=== PATIENT | female | born 1985 | race Hispanic/Latino ===

== ENCOUNTER 2017-07-10 08:16 | Emergency (ER) | payer OTHER ==
[~2017-07-10] VITALS: Ht 162.6 cm; Wt 104.0 kg
[~2017-07-10 08:16] MED LIST: AMOXICILLIN500 MG PO; AUGMENTIN500 MG OR; DENIES CURRENT MEDS; LORTAB 5/3255 MG PO; NO HOME MEDS; PHENERGAN25 MG/TAB PO; PRENA1/QUATREFOLIC; PRENATAL1 TA1; PRILOSEC20 MG/CAP PO; PROMETHAZINE25 MG OR
[2017-07-10] MEDS ORDERED: AMOXICILLIN500 M2 PO (09:15)
[2017-07-10 09:23] VITALS: BP 129/83
== END 2017-07-10 09:32 | disposition home or self-care (01) | DRG 153 ==
LOC: ED 08:16
DX: J02.9 Acute pharyngitis, unspecified (principal)

== ENCOUNTER 2019-05-17 08:23 | Emergency (ER) | payer SELFPAY ==
[~2019-05-17] VITALS: Ht 162.6 cm; Wt 95.2 kg
[~2019-05-17 08:23] MED LIST changes: +AMOXICILLIN500 M2 PO
[2019-05-17] MEDS ORDERED: AMOXICILLIN500 M2 PO (09:01)
[2019-05-17 09:15] VITALS: BP 119/83
== END 2019-05-17 09:15 | disposition home or self-care (01) | DRG 153 ==
LOC: ED 08:23
DX: J02.9 Acute pharyngitis, unspecified (principal)

== ENCOUNTER 2020-01-20 04:02 | Emergency (ER) | payer MEDICAID ==
[~2020-01-20] VITALS: Ht 162.6 cm; Wt 93.0 kg
[2020-01-20 05:18] LABS: URINE BILIRUBIN - DIPSTICK NEGATIVE (NEGATIVE); URINE BLOOD DIPSTICK NEGATIVE (NEGATIVE); URINE COLOR YELLOW; URINE GLUCOSE - DIPSTICK NEGATIVE (NEGATIVE); URINE KETONE NEGATIVE (NEGATIVE); URINE LEUK ESTERASE NEGATIVE (NEGATIVE); URINE NITRITE - DIPSTICK NEGATIVE (Negative); URINE PH 5.5 (4.5-8.0); URINE PROTEIN - DIPSTICK TRACE mg/dL (NEG-TRACE); URINE SPECIFIC GRAVITY >=1.030; URINE UROBILINOGEN - DIPSTICK 0.2 E.U./dL (0.2)
[2020-01-20 05:23] LABS: HEMATOCRIT 33.1 % (37.0-47.0); IMMATURE GRANULOCYTES 0.1 % (0.0-5.0); MEAN CORPUSCULAR HGB 18.8 pG CALC (26.0-32.0); MEAN CORPUSCULAR HGB CONC 26.6 g/dL CAL (32.0-36.0); NEUT# 3.37 thou/uL (2.00-7.15); RED BLOOD COUNT 4.68 mill/uL (4.20-5.60); RED CELL DISTRI WIDTH 19.5 % (11.5-15.5)
[2020-01-20 05:26] LABS: HEMOGLOBIN 8.8 g/dl (12.0-16.0); MEAN CELL VOLUME 70.7 fL CALC (80.0-100.0)
[2020-01-20 05:40] LABS: ALBUMIN 4.4 g/dL (3.2-5.0); ALKALINE PHOSPHATASE 58 u/l (38-126); BUN 16 mg/dL (7-17); BUN/CREATININE RATIO 25 (12-20 (CALC)); CARBON DIOXIDE 23 mmol/l (22-30); CHLORIDE 107 mmol/l (95-108); CREATININE 0.7 mg/dL (0.5-1.0); GFR > 60 ML/MIN (>=60 (CALC)); GFR FOR AFR.AMER. > 60 ML/MIN (>=60 (CALC)); LIPASE 132 u/l (23-300); POTASSIUM 3.8 mmol/l (3.5-5.1); SGOT/AST 17 u/l (14-36); TOTAL PROTEIN 7.2 g/dL (6.3-8.2)
[2020-01-20 05:47] LABS: ANION GAP 11 (6-22 (CALC)); BILIRUBIN, TOTAL 0.2 mg/dL (0.0-1.4); SODIUM 137 mmol/l (137-146)
[2020-01-20 06:25] VITALS: BP 134/72
[2020-01-20] MEDS ORDERED: ZOFRAN4 MG/TAB PO (06:36)
[2020-01-20] MEDS ORDERED: ULTRAM50 MG PO (06:36)
[2020-01-20] MEDS ORDERED: PROTONIX40 M2 PO (06:36)
== END 2020-01-20 06:48 | disposition home or self-care (01) | DRG 392 ==
LOC: ED 04:02
DX: K29.70 Gastritis, unspecified, without bleeding (principal); D64.9 Anemia, unspecified
CPT/HCPCS: S0164

== ENCOUNTER 2020-06-08 11:13 | Emergency (ER) | payer MEDICAID ==
[~2020-06-08] VITALS: Ht 162.6 cm; Wt 104.4 kg
[~2020-06-08 11:13] MED LIST changes: +AMOX/K CLAV875 M1 PO; +PROBIOTIC1 TAB PO; +PROTONIX40 M2 PO; +ULTRAM50 MG PO; +ZOFRAN4 MG/TAB PO
[2020-06-08] MEDS ORDERED: XANAX0.5 MG PO (11:26)
[2020-06-08 13:04] LABS: URINE BILIRUBIN - DIPSTICK NEGATIVE (NEGATIVE); URINE BLOOD DIPSTICK NEGATIVE (NEGATIVE); URINE COLOR YELLOW; URINE GLUCOSE - DIPSTICK NEGATIVE (NEGATIVE); URINE KETONE NEGATIVE (NEGATIVE); URINE LEUK ESTERASE NEGATIVE (NEGATIVE); URINE NITRITE - DIPSTICK NEGATIVE (Negative); URINE PH 7.5 (4.5-8.0); URINE PROTEIN - DIPSTICK TRACE mg/dL (NEG-TRACE); URINE UROBILINOGEN - DIPSTICK 0.2 E.U./dL (0.2)
[2020-06-08] MEDS ORDERED: MEDDOSEPAK PO (13:18)
[2020-06-08] MEDS ORDERED: IBUPROFEN600 MG PO (13:18)
[2020-06-08 13:34] VITALS: BP 140/79
== END 2020-06-08 13:47 | disposition home or self-care (01) ==
LOC: ED 11:13
PROVIDERS: Student in an Organized Health Care Education/Training Program
DX: M51.26 Other intervertebral disc displacement, lumbar region (principal); Z20.822 Contact with and (suspected) exposure to COVID-19

== ENCOUNTER 2021-01-28 10:55 | Emergency (ER) | payer MEDICAID ==
[~2021-01-28] VITALS: Ht 162.6 cm; Wt 100.0 kg
[~2021-01-28 10:55] MED LIST changes: +IBUPROFEN600 MG PO; +MEDDOSEPAK PO; +XANAX0.5 MG PO
[2021-01-28 12:58] LABS: HEMATOCRIT 35.7 % (37.0-47.0); HEMOGLOBIN 10.4 g/dl (12.0-16.0); MEAN CELL VOLUME 70.8 fL CALC (80.0-100.0); MEAN CORPUSCULAR HGB 20.6 pG CALC (26.0-32.0); MEAN CORPUSCULAR HGB CONC 29.1 g/dL CAL (32.0-36.0); NEUT# 3.08 thou/uL (2.00-7.15); RED BLOOD COUNT 5.04 mill/uL (4.20-5.60); RED CELL DISTRI WIDTH 18.1 % (11.5-15.5)
[2021-01-28 13:43] LABS: ALBUMIN 4.5 g/dL (3.2-5.0); ALKALINE PHOSPHATASE 60 u/l (38-126); ANION GAP 13 (6-22 (CALC)); BILIRUBIN, TOTAL 0.3 mg/dL (0.0-1.4); BUN 11 mg/dL (7-17); BUN/CREATININE RATIO 17 (12-20 (CALC)); CARBON DIOXIDE 26 mmol/l (22-30); CHLORIDE 102 mmol/l (95-108); CREATININE 0.6 mg/dL (0.5-1.0); GFR > 60 ML/MIN (>=60 (CALC)); GFR FOR AFR.AMER. > 60 ML/MIN (>=60 (CALC)); POTASSIUM 3.8 mmol/l (3.5-5.1); SGOT/AST 42 u/l (14-36); SODIUM 137 mmol/l (137-146)
[2021-01-28] MEDS ORDERED: ALLEGRA ALLERGY60 MG PO (15:43)
[2021-01-28] MEDS ORDERED: ZOFRAN4 MG/TAB PO (15:43)
[2021-01-28] MEDS ORDERED: SINGULAIR10 MG PO (15:43)
[2021-01-28 16:13] VITALS: BP 131/59
== END 2021-01-28 16:20 | disposition home or self-care (01) ==
LOC: ED 10:55
PROVIDERS: Emergency Medicine
DX: U07.1 COVID-19 (principal); J12.82 Pneumonia due to coronavirus disease 2019
CPT/HCPCS: Q9967

== ENCOUNTER 2021-02-04 18:56 | Emergency (ER) | payer MEDICAID ==
[~2021-02-04] VITALS: Ht 162.6 cm; Wt 95.0 kg
[~2021-02-04 18:56] MED LIST changes: +ALLEGRA ALLERGY60 MG PO; +SINGULAIR10 MG PO
[2021-02-04] MEDS ORDERED: ALBUTEROL SULFA0.51 (19:44)
[2021-02-04 20:37] LABS: URINE BILIRUBIN - DIPSTICK NEGATIVE (NEGATIVE); URINE BLOOD DIPSTICK SMALL (NEGATIVE); URINE COLOR YELLOW; URINE GLUCOSE - DIPSTICK NEGATIVE (NEGATIVE); URINE KETONE NEGATIVE (NEGATIVE); URINE LEUK ESTERASE NEGATIVE (NEGATIVE); URINE PROTEIN - DIPSTICK NEGATIVE (NEG-TRACE); URINE SPECIFIC GRAVITY 1.015; URINE UROBILINOGEN - DIPSTICK 0.2 E.U./dL (0.2)
[2021-02-04 20:44] LABS: URINE NITRITE - DIPSTICK NEGATIVE (Negative)
[2021-02-04 20:52] LABS: URINE RBC 0-2 RBC/hpf (0-5); URINE SQUAMOUS EPITHELIAL CELL FEW EPI/hpf (0-FEW)
[2021-02-04 21:35] LABS: HEMATOCRIT 32.2 % (37.0-47.0); HEMOGLOBIN 9.3 g/dl (12.0-16.0); IMMATURE GRANULOCYTES 0.1 % (0.0-5.0); MEAN CELL VOLUME 72.7 fL CALC (80.0-100.0); MEAN CORPUSCULAR HGB CONC 28.9 g/dL CAL (32.0-36.0); NEUT# 4.12 thou/uL (2.00-7.15); RED BLOOD COUNT 4.43 mill/uL (4.20-5.60); RED CELL DISTRI WIDTH 19.5 % (11.5-15.5)
[2021-02-04 21:49] LABS: ALBUMIN 4.4 g/dL (3.2-5.0); ALKALINE PHOSPHATASE 60 u/l (38-126); AMYLASE 56 u/l (30-110); ANION GAP 15 (6-22 (CALC)); BILIRUBIN, TOTAL 0.4 mg/dL (0.0-1.4); BUN 11 mg/dL (7-17); BUN/CREATININE RATIO 16 (12-20 (CALC)); CARBON DIOXIDE 25 mmol/l (22-30); CHLORIDE 100 mmol/l (95-108); CREATININE 0.7 mg/dL (0.5-1.0); GFR > 60 ML/MIN (>=60 (CALC)); GFR FOR AFR.AMER. > 60 ML/MIN (>=60 (CALC)); LIPASE 100 u/l (23-300); POTASSIUM 3.4 mmol/l (3.5-5.1); SGOT/AST 23 u/l (14-36); SODIUM 138 mmol/l (137-146); TOTAL PROTEIN 7.6 g/dL (6.3-8.2)
[2021-02-04] MEDS ORDERED: AMOXICILLIN500 MG PO (21:55)
[2021-02-04] MEDS ORDERED: PREVACID30 M3 PO (21:55)
[2021-02-04 22:10] VITALS: BP 147/95
== END 2021-02-04 22:10 | disposition home or self-care (01) ==
LOC: ED 18:56
PROVIDERS: Emergency Medicine
DX: U07.1 COVID-19 (principal); A08.39 Other viral enteritis

== ENCOUNTER 2021-03-19 10:37 | Emergency (ER) | payer MEDICAID ==
[~2021-03-19] VITALS: Ht 162.6 cm; Wt 100.0 kg
[~2021-03-19 10:37] MED LIST changes: +ALBUTEROL SULFA0.51; +PREVACID30 M3 PO
[2021-03-19] MEDS ORDERED: IRON325 M1 PO (10:58)
[2021-03-19 11:34] LABS: HEMOGLOBIN 11.1 g/dl (12.0-16.0); IMMATURE GRANULOCYTES 0.2 % (0.0-5.0); MEAN CORPUSCULAR HGB 22.4 pG CALC (26.0-32.0); MEAN CORPUSCULAR HGB CONC 28.9 g/dL CAL (32.0-36.0); NEUT# 3.61 thou/uL (2.00-7.15); RED BLOOD COUNT 4.95 mill/uL (4.20-5.60); RED CELL DISTRI WIDTH 21.3 % (11.5-15.5)
[2021-03-19 11:36] LABS: HEMATOCRIT 38.4 % (37.0-47.0); MEAN CELL VOLUME 77.6 fL CALC (80.0-100.0)
[2021-03-19 12:25] LABS: URINE BILIRUBIN - DIPSTICK NEGATIVE (NEGATIVE); URINE BLOOD DIPSTICK NEGATIVE (NEGATIVE); URINE COLOR YELLOW; URINE GLUCOSE - DIPSTICK NEGATIVE (NEGATIVE); URINE KETONE NEGATIVE (NEGATIVE); URINE LEUK ESTERASE NEGATIVE (NEGATIVE); URINE PH 7.5 (4.5-8.0); URINE PROTEIN - DIPSTICK NEGATIVE (NEG-TRACE); URINE SPECIFIC GRAVITY 1.015; URINE UROBILINOGEN - DIPSTICK 0.2 E.U./dL (0.2)
[2021-03-19 12:26] LABS: URINE NITRITE - DIPSTICK NEGATIVE (Negative)
[2021-03-19 12:42] LABS: ALBUMIN 4.5 g/dL (3.2-5.0); ALKALINE PHOSPHATASE 66 u/l (38-126); ANION GAP 13 (6-22 (CALC)); BUN 14 mg/dL (7-17); BUN/CREATININE RATIO 22 (12-20 (CALC)); CARBON DIOXIDE 25 mmol/l (22-30); CHLORIDE 105 mmol/l (95-108); CREATININE 0.6 mg/dL (0.5-1.0); GFR > 60 ML/MIN (>=60 (CALC)); GFR FOR AFR.AMER. > 60 ML/MIN (>=60 (CALC)); LIPASE 72 u/l (23-300); MAGNESIUM 2.1 mg/dL (1.6-2.3); POTASSIUM 3.6 mmol/l (3.5-5.1); SGOT/AST 28 u/l (14-36); SODIUM 140 mmol/l (137-146)
[2021-03-19 12:43] LABS: BILIRUBIN, TOTAL 0.7 mg/dL (0.0-1.4)
[2021-03-19] MEDS ORDERED: LIDOCAINE21 MT (14:17)
[2021-03-19] MEDS ORDERED: CARAFATE PO (14:17)
[2021-03-19] MEDS ORDERED: OMEPRAZOLE DR10 MG PO (14:17)
[2021-03-19 14:19] VITALS: BP 128/72
== END 2021-03-19 14:24 | disposition home or self-care (01) ==
LOC: ED 10:37
PROVIDERS: Emergency Medicine
DX: K21.9 Gastro-esophageal reflux disease without esophagitis (principal)

== ENCOUNTER 2024-07-25 07:38 | Emergency (ER) | payer SELFPAY ==
[~2024-07-25] VITALS: Ht 162.6 cm; Wt 99.0 kg
[2024-07-25] VITALS (12 sets, daily range): BP systolic 118–184; BP diastolic 63–110
[~2024-07-25 07:38] MED LIST changes: +CARAFATE PO; +IRON325 M1 PO; +LIDOCAINE21 MT; +OMEPRAZOLE DR10 MG PO
[2024-07-25] MEDS ORDERED: SODIUM CHLORIDE 0.9% 1,000 ML IV ONE (08:05)
[2024-07-25] MEDS ORDERED: KETOROLAC TROMETHAMINE 15 MG/ML SDV IV ONE (08:05)
[2024-07-25] MEDS ORDERED: ONDANSETRON HCl 4 MG/2 ML SDV IV ONE (08:05)
[2024-07-25 08:26] LABS: BASO% 0.5 % (0-3); EOS% 1.2 % (0-8); HEMOGLOBIN 9.9 g/dl (12.0-16.0); IMMATURE GRANULOCYTES 0.1 % (0.0-5.0); LYMPH% 19.9 % (15-41); MEAN CELL VOLUME 79.5 fL CALC (80.0-100.0); MEAN CORPUSCULAR HGB 23.9 pG CALC (26.0-32.0); MONO% 7.6 % (2-13); NEUT# 6.11 thou/uL (2.00-7.15); NEUT% 70.7 % (42-76); RED BLOOD COUNT 4.15 mill/uL (4.20-5.60); RED CELL DISTRI WIDTH 16.3 % (11.5-15.5)
[2024-07-25] MEDS ORDERED: PROMETHAZINE HCL 25 MG/ML AMP IM ONE (08:30)
[2024-07-25 08:38] LABS: ALBUMIN 4.2 g/dL (3.2-5.0); BILIRUBIN, TOTAL 0.4 mg/dL (0.02-1.3); CREATININE 0.9 mg/dL (0.5-1.0); POTASSIUM 4.1 mmol/l (3.5-5.1); TOTAL PROTEIN 7.2 g/dL (6.3-8.2)
[2024-07-25] MEDS ORDERED: TAMSULOSIN0.4 MG PO (09:47)
[2024-07-25] MEDS ORDERED: TRAMADOL HYDROC50 M1 PO (09:47)
[2024-07-25] MEDS ORDERED: TORADOL PO (09:47)
[2024-07-25 09:55] LABS: URINE BILIRUBIN - DIPSTICK Negative (NEGATIVE); URINE BLOOD DIPSTICK Moderate (NEGATIVE); URINE GLUCOSE - DIPSTICK Negative (NEGATIVE); URINE KETONE Negative (NEGATIVE); URINE LEUK ESTERASE Negative (NEGATIVE); URINE NITRITE - DIPSTICK Negative (Negative); URINE PROTEIN - DIPSTICK 30 mg/dL (NEG-TRACE); URINE SPECIFIC GRAVITY >=1.030; URINE UROBILINOGEN - DIPSTICK 0.2 E.U./dL (0.2)
[2024-07-25 09:56] LABS: URINE COLOR Yellow
[2024-07-25 10:04] LABS: URINE MUCUS MODERATE hpf (NONE-FEW); URINE RBC 25-50 RBC/hpf (0-5); URINE SQUAMOUS EPITHELIAL CELL FEW EPI/hpf (0-FEW); URINE WBC 0-2 WBC/hpf (0-5)
== END 2024-07-25 10:49 | disposition home or self-care (01) | DRG 694 ==
LOC: ED 07:38
PROVIDERS: Family Medicine
DX: N13.2 Hydronephrosis with renal and ureteral calculous obstruction (principal)
CPT/HCPCS: J1885; J2405; J2550